=== PATIENT | female | born 1960 | race Caucasian/White ===

== ENCOUNTER 2017-02-21 22:40 | Observation (INO) | payer MEDICAID ==
[~2017-02-21] VITALS: Ht 170.2 cm; Wt 80.0 kg
[2017-02-21 23:04] VITALS: BP 142/67; PULSE 94; RESP 18; TEMP 97.7; O2SAT 98
--- NOTE | 2017-02-21 23:15 | PD ---
Physical Exam Date Seen by Provider: Feb 21, 2017 Time Seen by Provider: 23:00 Narrative This is a 56-year-old female with a history of celiac disease, who was sent from the [place] emergency department from an ER to ER transfer for an MRI of the abdomen with and without contrast. The patient was seen and evaluated for right flank pain. Concern was that she could have cholecystitis. At that time a reading showed a linear finding on the liver that was concerning for mass versus infarct. White blood cell count was 7.4. Elect her lites were within normal limits. Urinalysis was negative. Data Data Last Documented VS Vital Signs Date Time Temp Pulse Resp B/P Pulse Ox O2 Delivery O2 Flow Rate FiO2 02/21/17 23:04 97.7 94 18 142/67 98 Orders Mri Abdomen W&W/O Contrast (02/22/17 ) Gadodiamide Pf Inj (Omniscan Pf Inj) (02/22/17 01:31) Place In Observation (02/22/17 ) Vital Signs (Adult) Q4H (02/22/17 02:34) Activity Oob Ad Ila (02/22/17 02:34) Diet Npo (02/22/17 Breakfast) Sodium Chlor 0.9% 1000 Ml Inj (Ns 1000 M (02/22/17 02:34) Sodium Chloride 0.9% Flush (Ns Flush) (02/22/17 02:45) Sodium Chloride 0.9% Flush (Ns Flush) (02/22/17 09:00) Ondansetron Inj (Zofran Inj) (02/22/17 02:45) Comprehensive Metabolic Panel (02/23/17 06:00) Complete Blood Count With Diff (02/23/17 06:00) Scd Bilateral/Knee High ANAIS.BID (02/22/17 02:34) Amado Bilateral/Knee High ANAIS.QSHIFT (02/22/17 02:34) Morphine Inj (Morphine Inj) (02/22/17 02:45) Oxycodone (Roxicodone) (02/22/17 02:45) Docusate Sodium-Senna (Sandy-Colace) (02/22/17 09:00) Magnesium Hydroxide Liq (Milk Of Magnesi (02/22/17 02:45) Sennosides (Senokot) (02/22/17 02:45) Bisacodyl Supp (Dulcolax Supp) (02/22/17 02:45) Lactulose Liq (Lactulose Liq) (02/22/17 02:45) Admit Order (Ed Use Only) (02/22/17 03:09) [facility] Medical Record Reviewed: Yes Supervised Visit with JANET: No Differential Diagnosis Liver infarct versus mass versus atypical cholecystitis versus pancreatitis Narrative Course 56-year-old female sent from [place] emergency department for MRI to evaluate abnormal liver finding. The patient has what appears to be an extremely large hemangioma. Given the size and the fact that she's having pain, the patient be admitted under observation. Case was discussed with Dr. Chavez who will follow her in consultation. Question is whether she should have a embolization versus surgical removal of the hemangioma. Case was also discussed with Dr. Mccarty, [facility], who bring the patient under her service. Diagnosis Primary Impression: large liver hemangioma Admitting Information Admitting Physician Requests: Observation Scripts No Active Prescriptions or Reported Meds Jon Snow MD Feb 21, 2017 23:15
[2017-02-22] MEDS ORDERED: GADODIAMIDE PF 287 MG/ML 5 ML VIAL (for RAD MRI) IV ONE (01:31)
--- NOTE | 2017-02-22 01:44 | RADRPT ---
EXAM DATE/TIME: 02/22/2017 00:51 [place] COMPARISON: CT ABDOMEN & PELVIS W/O CONTRAST, February 21, 2017, 18:45. INDICATIONS : Abnormal CT scan. CONTRAST: 15 cc Omniscan (gadodiamide) IV MEDICAL HISTORY : Low hemoglobin. SURGICAL HISTORY : Endometrial abalation. Hiatal hernia. ENCOUNTER: Initial ACUITY: 2 day PAIN SCORE: 4/10 LOCATION: Right abdomen TECHNIQUE: Multiplanar, multisequence magnetic resonance imaging of the abdomen was performed without and with i ntravenous contrast. FINDINGS: LIVER: Normal size with normal signal intensity. There is 11.6 x 7.9 cm cystic lesion in the inferior aspect right lobe of the liver with peripheral nodular enhancement consistent with a large hemangioma. 1.5 cm distal hemangioma in the right lobe of the liver superiorly. Numerous other tiny cysts of no clin ical significance Portal vein is within normal limits. BILIARY: There is no intra- or extra-hepatic biliary ductal dilatation. Gallbladder contains no stones. SPLEEN: Within normal limits. PANCREAS: Within normal limits. ADRENALS: Within normal limits. KIDNEYS: Normal size and signal intensity. There is no hydronephrosis or mass. OTHER: Aorta is nonaneurysmal. There is no lymphadenopathy. CONCLUSION: Multiple lesions scattered throughout the liver. There is a very large lesion involving the entire in ferior aspect of the right lobe of the liver consistent with a giant hemangioma. Manjit Mitchell MD on February 22, 2017 at 1:40 Board Certified Radiologist. This report was verified electronically.
[2017-02-22] MEDS ORDERED: LACTULOSE SYRUP 20 GM/30 ML CUP PO PRN (02:45)
[2017-02-22] MEDS ORDERED: SENNOSIDES 8.6 MG TAB PO PRN (02:45)
[2017-02-22] MEDS ORDERED: MAGNESIUM HYDROXIDE SUSP 30 ML CUP PO PRN (02:45)
[2017-02-22] MEDS ORDERED: MORPHINE SULFATE 4 MG/ML INJ IV PRN (02:45)
[2017-02-22] MEDS ORDERED: BISACODYL 10 MG SUPP RECTAL PRN (02:45)
[2017-02-22] MEDS ORDERED: SODIUM CHLORIDE 0.9% FLUSH 10 ML FLUSH IV FLUSH PRN (02:45)
[2017-02-22] MEDS: SODIUM CHLOR 0.9% 1000 ML INJ 1,000 ML IV SCH ×3 (02:58→20:40)
--- NOTE | 2017-02-22 04:09 | HHI.HP ---
HPI Service [facility] Hospitalists Primary Care Physician No Primary Care Physician Admission Diagnosis large liver hemagnioma, right upper post flank pain. Diagnoses: (1) Hemangioma of liver Diagnosis: Principal (2) Intractable abdominal pain Diagnosis: Principal (3) HTN (hypertension) Diagnosis: Principal (4) UTI (urinary tract infection) Diagnosis: Principal Travel History International Travel<30 Days: No Contact w/Intl Traveler <30 Da: No Traveled to Known Affected Are: No History of Present Illness This is a 56-year-old female with a PMH of Asthma and Celiac Disease who was transferred from [facility] for further evaluation of liver mass. Patient presented to [place] ER with complaints of right-sided abdominal pain, progressively worse x2 days. Denies nausea, vomiting or diarrhea. Reports pain is worse w/ movement and w/ deep breath. No fevers or chills. On arrival , BP 168/94, HR 114, O2 sat 99% on RA, Afebrile. Labs prior to transfer w/ CBC unremarkable, GFR 74, AST 40, ALT 44, ALP 199. Lipase normal. CT Abd/Pelvis w / 9.7 cm mass inferior right lobe of liver with further evaluation with MRI recommended. Upon arrival to [place], patient underwent Abdominal MRI showing multiple lesions throughout the liver, large lesion 11.6 x 7.9 cm lesion involving the entire inferior aspect of the right lobe of the liver consistent with a giant hemangioma. Dr. De Leon consulted by ER physician, recommended IR for possible embolectomy w/ plan for surgical resection if unsuccessful. Review of Systems Except as stated in HPI: all other systems reviewed are Neg ROS: 14 point review of systems otherwise negative. Past Family Social History Past Medical History PMH: Asthma and Celiac Disease Past Surgical History PAST SURGICAL HISTORY: Uterine Ablation, Tonsillectomy, Hernia Repair Allergies: Coded Allergies: No Known Allergies (Unverified , 02/21/17) Family History PAST FAMILY HISTORY: Reviewed. No h/o DM or CAD Social History PAST SOCIAL HISTORY: Negative for alcohol, tobacco or drugs. Physical Exam Vital Signs Vital Signs Date Time Temp Pulse Resp B/P Pulse Ox O2 Delivery O2 Flow Rate FiO2 02/21/17 23:04 97.7 94 18 142/67 98 Physical Exam PE: GENERAL: Very pleasant middle-aged white female in no acute distress. HEENT: PERRLA, EOMI. No scleral icterus or conjunctival pallor. No lid lag or facial droop. CARDIOVASCULAR: Regular rate and rhythm. No obvious murmurs to auscultation. No chest tenderness to palpation. RESPIRATORY: No obvious rhonchi or wheezing. Clear to auscultation. Breath sounds equal bilaterally. GASTROINTESTINAL: Abdomen soft, RUQ with tenderness to palpation, nondistended. BS normal. MUSCULOSKELETAL: Extremities without clubbing, cyanosis, or edema. No obvious deformities. NEUROLOGICAL: Awake, alert and oriented x4. No focal neurologic deficits. Moving both upper and lower extremities spontaneously. Assessment and Plan Problem List: (1) Hemangioma of liver ICD Code: D18.03 Status: Acute (2) Intractable abdominal pain ICD Code: R10.9 Status: Acute (3) UTI (urinary tract infection) ICD Code: N39.0 Status: Acute (4) HTN (hypertension) ICD Code: I10 Status: Acute Assessment and Plan A/P: 1. Hemangioma: c/o progressive RUQ pain x2 days, CT Abd/Pelvis in [place] ER w / 9.7cm liver mass, recommendation for MRI, tx to [place], s/p MRI Abdomen w/ large 11.6 x 7.9 cm cystic lesion in the right lobe of liver consistent with large hemangioma, images reviewed by me. Dr. De Leon consulted by ER physician, recommended embolization by IR, w/ plan for surgical intervention if unsuccessful. NPO, IVF, analgesics/antiemetics as needed. 2. Intractable Abd Pain: secondary to above. Analgesics/antiemetics as needed , however pt reluctant to take narcotic medications. 3. UTI: U/a w/ small LE, bacteriuria, will start on IV Cipro, IVF for hydration. 4. HTN: BP 160's systolic on arrival, likely compounded by pain. BP currently 142/67, HR 94. Will monitor. 5. DVT Prophylaxis: SCD/Teds. 6. Social work for d/c planning as needed. 7. Case discussed w/ ER physician at length Kaylee Helton MD Feb 22, 2017 04:09
[2017-02-22] MEDS: CIPROFLOXACIN 400 MG PREMIX 200 ML IV SCH ×2 (05:09→16:17)
[2017-02-22 05:10] VITALS: BP 106/62; PULSE 66; RESP 16; O2SAT 99
[2017-02-22 06:24] VITALS: BP 114/65; PULSE 73; RESP 18; TEMP 98.5; O2SAT 97
[2017-02-22 07:41] VITALS: BP 113/60; PULSE 69; RESP 18; TEMP 96.8; O2SAT 96
[2017-02-22] MEDS: SODIUM CHLORIDE 0.9% FLUSH 10 ML FLUSH IV FLUSH SCH ×2 (08:30→20:35)
[2017-02-22] MEDS: DOCUSATE SODIUM 50 MG/SENNA 8.6 MG TAB PO SCH ×2 (08:31→21:41)
--- NOTE | 2017-02-22 12:03 | HHI.PR ---
Subjective Remarks Follow-up for right flank pain. The patient states she's been having right flank pain for the past 3 days. She states the pain is relieved when she is lying still, but is exacerbated whenever she moves or tries to take a deep breath. She states she has some dry heaving yesterday in the ED because of her empty stomach. She denies any vomiting or diarrhea. No fever or chills. She states she had a hernia surgery as a child, otherwise no other intra-abdominal surgeries. Objective Vitals Vital Signs Date Time Temp Pulse Resp B/P Pulse Ox O2 Delivery O2 Flow Rate FiO2 02/22/17 07:41 96.8 69 18 113/60 96 02/22/17 06:24 98.5 73 18 114/65 97 02/22/17 05:10 66 16 106/62 99 Room Air 02/21/17 23:04 97.7 94 18 142/67 98 I/O 02/21/17 02/21/17 02/21/17 02/22/17 02/22/17 02/22/17 07:00 15:00 23:00 07:00 15:00 23:00 Intake Total 200 ml Balance 200 ml Intake Oral 0 ml IV Total 200 ml # Voids 3 Imaging Last Impressions Abdomen MRI 02/22/17 0000 Signed Impressions: Service Date/Time: Wednesday, February 22, 2017 00:51 - CONCLUSION: Multiple lesions scattered throughout the liver. There is a very large lesion involving the entire inferior aspect of the right lobe of the liver consistent with a giant hemangioma. Manjit Mitchell MD Objective Remarks GENERAL: Well-developed well-nourished. In no acute distress. SKIN: Warm and dry. No lesions noted. HEENT: Normocephalic. Pupils equal and round. Mucous membranes pink and moist. CARDIOVASCULAR: Regular rate and rhythm. No murmur appreciated. RESPIRATORY: No accessory muscle use. Clear to auscultation. Breath sounds equal bilaterally. GASTROINTESTINAL: Abdomen soft, nondistended. Prominent edge of the liver palpable. Right flank TTP. MUSCULOSKELETAL: No obvious deformities. No clubbing or cyanosis. No edema. NEUROLOGICAL: Awake and alert. No focal neurological deficits. Moves upper and lower extremities spontaneously. Normal speech. PSYCHIATRIC: Appropriate mood and affect; insight and judgment normal. A/P Problem List: (1) Hemangioma of liver ICD Code: D18.03 Status: Acute (2) Intractable abdominal pain ICD Code: R10.9 Status: Acute (3) UTI (urinary tract infection) ICD Code: N39.0 Status: Acute (4) HTN (hypertension) ICD Code: I10 Status: Acute Assessment and Plan 56-year-old female with a PMH of Asthma and Celiac Disease who was transferred from [facility] for further evaluation of liver mass Hemangioma: Presented c/o progressive RUQ pain x2 days. CT Abd/Pelvis in [place] ER w/ 9.7cm liver mass, recommendation for MRI. MRI Abdomen w/ large 11.6 x 7.9 cm cystic lesion in the right lobe of liver consistent with large hemangioma, images personally reviewed. General surgery, Dr. De Leon consulted by ER physician, recommended embolization by IR, w/ plan for surgical intervention if unsuccessful. NPO, IVF. Oral and intravenous narcotics as needed for pain. UTI: U/a w/ evidence of UTI. Started on IV Cipro. Follow-up urine culture.. HTN: No history. BP initially elevated, likely compounded by pain, better controlled now. Will monitor. DVT Prophylaxis: SCD/Teds. Discharge Planning Follow-up IR and general surgery recommendations. 1430 Dr. Dennison and I discussed with Dr. Constantino. Mass will need to be removed by surgery, but he will discuss with IR tomorrow if possibly some of the hemangioma vessels can be coiled to reduce bleeding during later surgery. Surgery will likely not take place until later this week at the earliest and could possibly be done as outpatient if pain is controlled and patient tolerating diet. Dr. Dennison recommends awaiting IR coiling prior to DC planning. Art Lomeli Feb 22, 2017 12:03
[2017-02-22 12:21] VITALS: BP 119/70; PULSE 76; RESP 16; TEMP 97.9; O2SAT 97
--- NOTE | 2017-02-22 14:19 | PD.CAR.PN ---
CVT Progress Note Subjective/Hospital Course: Consult received patient evaluated Full consult dictation TF Lupillo J Objective: Vital Signs Date Time Temp Pulse Resp B/P Pulse Ox O2 Delivery O2 Flow Rate FiO2 02/22/17 12:21 97.9 76 16 119/70 97 02/22/17 07:41 96.8 69 18 113/60 96 02/22/17 06:24 98.5 73 18 114/65 97 02/22/17 05:10 66 16 106/62 99 Room Air 02/21/17 23:04 97.7 94 18 142/67 98 Ramon De Leon MD Feb 22, 2017 14:19
[2017-02-22 15:21] VITALS: BP 117/66; PULSE 84; RESP 17; TEMP 98.5; O2SAT 96
[2017-02-22 20:00] VITALS: BP 133/65; PULSE 81; RESP 20; TEMP 96.4; O2SAT 96
[2017-02-23 02:44] VITALS: BP 105/55; PULSE 76; RESP 18; TEMP 97.7; O2SAT 99
[2017-02-23] MEDS: CIPROFLOXACIN 400 MG PREMIX 200 ML IV SCH ×2 (03:05→16:53)
[2017-02-23 07:12] LABS: AUTOMATED NEUTROPHIL # 3.3 TH/MM3 (1.8-7.7); BASOPHIL # 0.1 TH/MM3 (0-0.2); BASOPHIL % 1.1 % (0.0-2.0); EOSINOPHIL # 0.1 TH/MM3 (0-0.4); EOSINOPHIL % 2.1 % (0.0-4.0); HEMATOCRIT 39.7 % (35.0-46.0); HEMO FLAGS DIFF FINAL; LYMPH % 22.5 % (9.0-44.0); LYMPHOCYTE # 1.1 TH/MM3 (1.0-4.8); MEAN CORPUSCULAR HEMOGLOBIN 30.2 PG (27.0-34.0); MEAN CORPUSCULAR HGB CONC 33.6 % (32.0-36.0); MONO % 7.7 % (0.0-8.0); NEUT % 66.6 % (16.0-70.0); PLATELET COUNT 209 TH/MM3 (150-450); RED BLOOD COUNT 4.41 MIL/MM3 (4.00-5.30); RED CELL DISTRIBUTION WIDTH 12.8 % (11.6-17.2); WHITE BLOOD COUNT 4.9 TH/MM3 (4.0-11.0)
[2017-02-23 07:32] VITALS: BP 116/64; PULSE 74; RESP 20; TEMP 98.2; O2SAT 96
[2017-02-23 07:52] LABS: ALT (GPT) 31 U/L (10-53); ANION GAP 7 MEQ/L (5-15); AST (GOT) 19 U/L (15-37); BICARBONATE 26.5 MEQ/L (21.0-32.0); BLOOD UREA NITROGEN 8 MG/DL (7-18); CHLORIDE 107 MEQ/L (98-107); GLOMERULAR FILTRATION RATE 91 ML/MIN (>89); POTASSIUM 3.9 MEQ/L (3.5-5.1); SODIUM (NA) 140 MEQ/L (136-145)
[2017-02-23 07:54] LABS: ALKALINE PHOSPHATASE 150 U/L (45-117); TOTAL BILIRUBIN ADULT 0.5 MG/DL (0.2-1.0)
[2017-02-23] MEDS ORDERED: ACETAMIN 325 MG/BUTALBITAL 50 MG/CAFFEINE 40 MG TAB PO PRN (08:45)
--- NOTE | 2017-02-23 08:49 | HHI.PR ---
Subjective Remarks Follow up for large liver hemangioma. The patient reports continued RUQ pain with radiation to the right thorax/flank, worse with deep inspiration. She does get some relief with pain medications. She reports a diffuse global headache consistent with her migraines, associated with nausea and dry heaving. She states she takes Excedrin Migraine for relief at home. She has no other medical complaints at this time. Objective Vitals Vital Signs Date Time Temp Pulse Resp B/P Pulse Ox O2 Delivery O2 Flow Rate FiO2 02/23/17 07:32 98.2 74 20 116/64 96 02/23/17 02:44 97.7 76 18 105/55 99 02/22/17 23:23 16 02/22/17 20:00 96.4 81 20 133/65 96 02/22/17 15:21 98.5 84 17 117/66 96 02/22/17 12:21 97.9 76 16 119/70 97 I/O 02/22/17 02/22/17 02/22/17 02/23/17 02/23/17 02/23/17 07:00 15:00 23:00 07:00 15:00 23:00 Intake Total 200 ml 640 ml Balance 200 ml 640 ml Intake Oral 0 ml 240 ml IV Total 200 ml 400 ml # Voids 3 1 Result Diagram: 02/23/17 0621 02/23/17 0621 Imaging Last Impressions Abdomen MRI 02/22/17 0000 Signed Impressions: Service Date/Time: Wednesday, February 22, 2017 00:51 - CONCLUSION: Multiple lesions scattered throughout the liver. There is a very large lesion involving the entire inferior aspect of the right lobe of the liver consistent with a giant hemangioma. Manjit Mitchell MD Objective Remarks GENERAL: Well-nourished, well-developed middle aged female patient in [facility]. SKIN: Warm and dry. No rash. HEENT: Normocephalic. Atraumatic. Pupils equal and round. Mucous membranes pink and moist. NECK: Supple. Trachea midline. CARDIOVASCULAR: Regular rate and rhythm. S1, S2 noted. No murmur appreciated. RESPIRATORY: No accessory muscle use. Clear to auscultation. Breath sounds equal bilaterally. GASTROINTESTINAL: Abdomen soft, nondistended, TTP at RUQ. Normoactive bowel sounds x4. MUSCULOSKELETAL: No obvious deformities. Extremities without clubbing, cyanosis , or edema. NEUROLOGICAL: Awake and alert. No obvious cranial nerve deficits. Motor grossly within normal limits. Normal speech. PSYCHIATRIC: Appropriate mood and affect; insight and judgment normal. Medications and IVs Current Medications Medications (Trade) Dose Ordered Sig/Rich Route Start Time Stop Time Status Last Admin (NS 1000 ml Inj) 1,000 ml @ 100 mls/hr Q10H IV 02/22/17 02:34 02/22/17 20:40 (NS Flush) 2 ml UNSCH PRN IV FLUSH 02/22/17 02:45 (NS Flush) 2 ml BID IV FLUSH 02/22/17 09:00 (Zofran Inj) 4 mg Q6H PRN IVP 02/22/17 02:45 (Morphine Inj) 2 mg Q3H PRN IV 02/22/17 02:45 (Roxicodone) 5 mg Q4H PRN PO 02/22/17 02:45 02/23/17 06:28 (Sandy-Colace) 1 tab BID PO 02/22/17 09:00 02/22/17 21:41 (Milk Of Magnesia Liq) 30 ml Q12H PRN PO 02/22/17 02:45 (Senokot) 17.2 mg Q12H PRN PO 02/22/17 02:45 (Dulcolax Supp) 10 mg DAILY PRN RECTAL 02/22/17 02:45 Lactulose 30 ml 30 ml DAILY PRN PO 02/22/17 02:45 (Cipro 400 Mg Premix) 200 ml @ 200 mls/hr Q12H IV 02/22/17 04:00 02/23/17 03:05 A/P Problem List: (1) Hemangioma of liver ICD Code: D18.03 Status: Acute (2) Intractable abdominal pain ICD Code: R10.9 Status: Acute (3) UTI (urinary tract infection) ICD Code: N39.0 Status: Acute (4) HTN (hypertension) ICD Code: I10 Status: Acute Assessment and Plan 56-year-old female with a PMH of Asthma and Celiac Disease who was transferred from [facility] for further evaluation of liver mass Large Liver Hemangioma: Presented c/o progressive RUQ pain x2 days. CT Abd/ Pelvis in [facility] ER w/ 9.7cm liver mass, recommendation for MRI. MRI Abdomen w/ large 11.6 x 7.9 cm cystic lesion in the right lobe of liver consistent with large hemangioma, images personally reviewed. General surgery, Dr. De Leon consulted by ER physician, recommended embolization by IR prior to surgical resection later this week. Keep NPO for now. Give IVF. Oral and intravenous narcotics as needed for pain. UTI: U/a w/ evidence of UTI. Started on IV Cipro. Follow-up urine culture, preliminary with gram negative rods. HTN: No history. BP initially elevated, likely compounded by pain, better controlled now. Will monitor. Headache: consistent with patient's migraines. Patient takes Excedrin migraine at home. Will give Fioricet prn. DVT Prophylaxis: SCD/Teds. Avoid chemical prophylaxis with hemangioma and upcoming surgery. Adriana Peñaloza PA-C Feb 23, 2017 8:49 am
[2017-02-23] MEDS: SODIUM CHLORIDE 0.9% FLUSH 10 ML FLUSH IV FLUSH SCH ×2 (09:00→21:00)
[2017-02-23] MEDS: SODIUM CHLOR 0.9% 1000 ML INJ 1,000 ML IV SCH (09:19)
[2017-02-23] MEDS: DOCUSATE SODIUM 50 MG/SENNA 8.6 MG TAB PO SCH ×2 (09:19→20:27)
[2017-02-23] MEDS: ONDANSETRON HCL 4 MG/2 ML VIAL IVP PRN ×2 (10:58→16:53)
[2017-02-23 11:37] VITALS: BP 113/72; PULSE 72; RESP 16; TEMP 97.9; O2SAT 97
[2017-02-23 15:33] VITALS: BP 109/61; PULSE 77; RESP 24; TEMP 97.8; O2SAT 97
[2017-02-23 19:37] VITALS: BP 135/70; PULSE 81; RESP 18; TEMP 98.6; O2SAT 98
--- NOTE | 2017-02-23 22:35 | PD.CAR.PN ---
CVT Progress Note Subjective/Hospital Course: Consult received patient evaluated Full consult dictation LUKAS Constantino 02/23/2017 As noted in the consult patient has giant hemangioma and literature on this is somewhat ambiguous. Symptomatic giant hemangioma should definitely be resected patient's a candidate for the same. The adjunct measures that can be employed in treatment of hemangioma R angioembolization as a self standing measure, angioembolization combined in employed prior to surgery, additional radiation prior to surgery and cryo-and radiofrequency ablation. Rupture of hemangioma scissors exceedingly rare although if it occurs mortality is high. Despite fear of it, the rupture has been described only in about 60 patient's and literature but of course the number is much higher for there are certainly patients that not been described or reported. At this point it is safe for patient to be discharged and I'll bring her in next week for surgery. I will also discuss with radiology the possibility of prior embolization as an adjunct measure. So from my point patient can be discharged at this time and I'll make sure my office stays on top of her admission in the future Objective: Vital Signs Date Time Temp Pulse Resp B/P Pulse Ox O2 Delivery O2 Flow Rate FiO2 02/23/17 19:37 98.6 81 18 135/70 98 02/23/17 15:33 97.8 77 24 109/61 97 02/23/17 11:37 97.9 72 16 113/72 97 02/23/17 07:32 98.2 74 20 116/64 96 02/23/17 02:44 97.7 76 18 105/55 99 02/22/17 23:23 16 Result Diagram: 02/23/17 0621 02/23/17 0621 Ramon De Leon MD Feb 23, 2017 22:35
--- NOTE | 2017-02-23 23:27 | HHI.DCPOC ---
Discharge Care Plan Diagnosis: (1) Intractable abdominal pain (2) Hemangioma of liver (3) UTI (urinary tract infection) Additional Problems large liver hemangioma . Goals to Promote Your Health * To prevent worsening of your condition and complications * To maintain your health at the optimal level Directions to Meet Your Goals Take your medications as prescribed Follow your dietary instruction Follow activity as directed Keep your appointments as scheduled Take your immunizations and boosters as scheduled If your symptoms worsen call your PCP, if no PCP go to Urgent Care Center or Emergency Room Smoking is Dangerous to Your Health. Avoid second hand smoke Call the 24-hour hour crisis hotline for domestic abuse at Shannan Gill Feb 23, 2017 23:27
[2017-02-23] MEDS ORDERED: OXYC-392 PO (23:34)
[2017-02-23] MEDS ORDERED: CIPR-9 PO (23:34)
--- NOTE | 2017-02-24 11:14 | MB ---
cc: RAMON SOUTH MD DATE OF CONSULTATION 02/22/[address] South REASON FOR CONSULTATION Giant hemangioma of the right lobe of the liver. HISTORY OF PRESENT DISEASE This 56-year-old female presented to the emergency room with right upper quadrant and flank pain x 2 days, no nausea or vomiting. The patient states the pain is worse with movement and breathing. She was worked up and found to have about a 10-cm in diameter right liver lobe hemangioma. MRI shows multiple lesions and the biggest one is the one that is about 10-11 cm and encompasses the majority of the inferior-most aspect of the right lobe of the liver and this constitutes giant hemangioma and I am consulted. PAST MEDICAL HISTORY 1. Asthma. 2. Celiac disease. PAST SURGICAL HISTORY 1. Uterine ablation. 2. Tonsillectomy. 3. Hernia repair. SOCIAL HISTORY The patient does not drink. PHYSICAL EXAMINATION GENERAL: A pleasant, 56-year-old lady in no acute distress. HEENT: Normocephalic. No trauma to the head. Pupils equal and reactive. Extraocular muscles intact. NECK: Supple. Bilateral carotid pulses; no bruits. CHEST: Clear bilateral breath sounds. HEART: Regular rhythm. ABDOMEN: Soft with active bowel sounds on palpation. Mild tender in the right upper quadrant laterally over the right flank. No rebound, guarding or masses. GROINS: Normal. EXTREMITIES: Within normal limits with proximal distal pulses. No signs of vascular deficit. BACK: Normal. NEUROLOGIC: The patient is fully intact. IMPRESSION AND RECOMMENDATIONS I have reviewed all of the diagnostic procedures and, after careful evaluation of these, the following are the recommendations - 1. The patient with giant hemangioma of the inferior portion of the right lobe of the liver. Giant hemangiomas are defined as those 10 cm or bigger. This is just about that size. Hemangioma lights up on the CT scan and on the MRI and diagnosis is certain. The patient has a few other smaller hemangiomas on the MRI which are right now of no consequence. Surgery is a controversial subject as far as hemangiomas are concerned. Small hemangiomas do not require any therapy, are incidental findings in many patients and nothing further needs to be done. Issue becomes with large hemangiomas and giant hemangiomas as above-note those more than 10 cm in size. Surgery is recommended with patients who are symptomatic or have rapid growth of hemangiomas. This patient has pain; I am not sure that it is from hemangioma to be honest but at this point there is nothing abnormal there, so we should assume it is from it. Surgeries are divided in various categories, those that have pure surgical procedure, either resection of the lobe of the liver and hemangioma, people who have just hemangioma resection and those who have enucleation of the same. In most studies between 2004 and currently, i.e. in the last 10 years, blood loss is about the same for both and between 550 cc to 1 liter. The main blood loss occurs from the bleeding from the hepatic veins backwards, not so much from the hepatic artery and portal vein because the patient can also have a Leodan maneuver during the surgery. 2. The additional options for hemangiomas are embolization. Inpatients who are poor candidate for surgery or those who are reasonable candidates for surgery but would like some form of control prior to the resection. 3. Some patients will undergo radiation of the hemangiomas which will shrink them down somewhat and make them more liable to surgery. The main risk of hemangioma is considered rupture but rupture is rare. While hemangiomas are described numerous times in literature, only about 50-60 patients have been ever described with hemangioma rupture, so this is an exceedingly rare problem, probably more frequent in textbooks than in real life. At this point I am going to discuss the options also with Interventional Radiology but this patient will need a resection of the hemangioma of the liver and we will prepare her for that adequately. Thank you much for the referral. Ramon MCMAHON/KEATON /10:03 PM /11:16 AM
== END 2017-02-24 00:33 | disposition home or self-care (01) ==
LOC: NEPE 22:40 → NEDA 02-22 03:11 → NEPFCDU 02-22 05:31
PROVIDERS: ADMIT Family Medicine; ATTEND Family Medicine
DX: D18.03 Hemangioma of intra-abdominal structures (principal); K76.9 Liver disease, unspecified; R10.11 Right upper quadrant pain; N39.0 Urinary tract infection, site not specified; R82.71 Bacteriuria; K90.0 Celiac disease; R94.8 Abnormal results of function studies of other organs and systems; R11.2 Nausea with vomiting, unspecified; G43.909 Migraine, unspecified, not intractable, without status migrainosus; I10 Essential (primary) hypertension; J45.909 Unspecified asthma, uncomplicated
CPT/HCPCS: 74176; 74183; 80053; 81001; 83690; 85025; 87077; 87086; 87186; 96374; 96375; 99285; A9579; G0378; J0744; J1885; J2405; J7030